=== PATIENT | male | born 1980 | race Caucasian/White ===

== ENCOUNTER → 2023-12-24 08:50 | Outpatient (REF) | payer OTHER, SELFPAY | LOC: RCS 08:50 | PROVIDERS: ATTENDING PHYSICIAN Pain Medicine Interventional Pain Medicine; FAMILY PHYSICIAN Family Medicine | DX: Z01.818 Encounter for other preprocedural examination (principal) | CPT/HCPCS: 93005 ==

== ENCOUNTER → 2024-09-19 12:03 | Outpatient (REF) | payer OTHER, SELFPAY | LOC: MRI 12:03 | PROVIDERS: ATTENDING PHYSICIAN Student in an Organized Health Care Education/Training Program; FAMILY PHYSICIAN Family Medicine | DX: M79.672 Pain in left foot (principal); M25.572 Pain in left ankle and joints of left foot | CPT/HCPCS: 73718; 73721 ==

== ENCOUNTER 2024-10-01 20:48 | Emergency (ER) | payer OTHER, SELFPAY ==
[2024-10-01 20:59] VITALS: BP 150/91
[2024-10-01 22:36] VITALS: BMI 41.4
--- NOTE | 2024-10-01 22:57 | ED.GENMED ---
History of Present Illness
General
Chief Complaint: Chest Pain
Source: patient, records and spouse
Exam Limitations: none
Time Seen by Provider: 10/01/24 22:31
Nursing documentation reviewed up to this point in time: agreed with
History of Present Illness
History of Present Illness:
Patient is a 44-year-old male who presents to the emergency department complaining of sharp pain in his chest for the past week. Patient states the pain was getting sharper and more in the lower posterior portion of his rib cage. Patient has been
coughing. Cough is essentially nonproductive but congested. Today the patient fell his left upper extremity just did not feel right. Patient denies fever or chills. Patient denies nasal congestion, sore throat. Patient denies shortness of
breath but states it does hurt to breathe. Patient has noted increased fatigue and increased urination. Patient has had increasing joint pain and was placed on prednisone which has helped in the past but now just has fatigue. Patient denies any
risk factors for PE or DVT. Patient does have a history of stents. Patient has a history of diabetes, hypertension and elevated cholesterol. 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 Patient has
something similar to this in the past that has been related to bronchitis.
Past History
Past History
ED Past Medical History: CAD (stent 2011), Cancer (Skin), HTN, Hypercholesterolemia, NIDDM, Psychiatric (Anxiety, depression, panic disorder) and Other (History of anxiety, panic disorder); Negative IDDM or NH
ED Past Surgical History: Cardiac (Cardiac stent August 2012), Orthopedic, Tonsilectomy and Other (Ganglion cyst removed in 2011)
Social History
Tobacco: Non-smoker
Alcohol: None
Drug: None
Personal:
Living: with family
Employment: Employed
Family History
Family History: Early CAD (uncle, father and grandfather with early cad)
Review of Systems
Review of Systems
All Other Systems: ROS reviewed and negative except as documented in HPI and ROS
Constitutional: Reports fatigue; Denies fever or chills
EENT: Reports no symptoms
Respiratory: Reports cough and trouble breathing
Cardiac: Reports chest pain; Denies diaphoresis, palpitations or syncope
ABD/GI: Reports no symptoms
: Reports frequency and urgency; Denies dysuria, flank pain or bleeding
Musculoskeletal: Reports no symptoms; Denies back pain
Skin: Reports no symptoms
Neurological: Reports no symptoms
Hematologic/Lymphatic: Reports no symptoms
Phy Exam
Physical Exam
Physical Exam:
Physical Exam
General: mild distress, alert and appropriate, well nourished, well hydrated
HENT: Normocephalic, supple with no lymphadenopathy, no thyromegaly
Eyes: Clear sclera, conjuctiva without injection
Heart: Regular rhythm and rate. No S3, S4. No murmur. No NVD, bruit
Lungs: No respiratory distress, no stridor, lung sounds clear and equal bilaterally, chest wall symmetrical and mildly reproducible tenderness
Abdomen: Soft, nontender, no organomegaly, no CVA tenderness, BS good
Neuro: Alert and oriented x 3, CN II - XII intact, no motor focality, no cerebellar dysfunction
Skin: no rash
Psychiatric: well kept. interactive and cooperative
Extremities: No edema, cyanosis, tenderness
Scores
Heart Failure Risk
Heart Failure Risk Score: Not Applicable
Heart Score for Chest Pain Patients
STEMI patient?: Not applicable
Withdrawal Assessment of Alcohol
Withdrawal Assessment Completed?: Not applicable
Course
Orders/Labs/Results
Orders:
Orders
10/01/24 20:48
EKG [Electrocardiogram (*1)] Urgent
Reason for Study: Chest Pain
10/01/24 20:49
EKG- Treatment ONCE
10/01/24 21:03
CR Chest - 2 Views Urgent
Comment:
Reason For Exam: SOB
10/01/24 21:06
Complete Blood Count/With Diff Urgent
Comprehensive Metabolic Panel Urgent
NT-proBNP Urgent
Troponin I Urgent
10/01/24 22:44
Electrocardiogram (*1) Urgent
Reason for Study: Chest Pain
Ipratropium/Albuterol Sulfate [Duoneb] 3 ml INH R NOW STA
Ketorolac [Toradol] 15 mg IV NOW STA
10/01/24 22:45
EKG- Treatment ONCE
10/02/24 00:02
0.9% Sodium Chloride 500 ml [Nss] 500 ml IV BOLUS
10/02/24 02:19
Ipratropium/Albuterol Sulfate [Duoneb] 3 ml INH R NOW STA
Abnormal Lab Results
10/01/24
21:06
WBC 11.3 H 10^3/uL
(4.8-10.8)
Absolute Neuts (auto) 7.3 H 10^3/uL
(1.4-6.5)
Absolute Monos (auto) 0.9 H 10^3/uL
(0.1-0.6)
BUN 22 H mg/dl
(9-20)
Glucose 268 H mg/dl
(70-99)
ALT 53 H U/L
(0-50)
10/01/24 21:06
10/01/24 21:06
Vital Signs
Initial and Last Documented VS:
Initial Vital Signs
Temp Pulse Resp BP Pulse Ox
98.2 F 80 20 150/91 97
10/01/24 20:59 10/01/24 20:59 10/01/24 20:59 10/01/24 20:59 10/01/24 20:59
Last Documented Vital Signs
Temp Pulse Resp BP Pulse Ox
98.2 F 76 21 131/71 97
10/01/24 20:59 10/02/24 02:00 10/02/24 02:00 10/02/24 02:00 10/02/24 02:00
*Radiology
Radiology exam reviewed: preliminary read by ED provider (Chest x-ray unremarkable)
*Pulse Oximetry
Patient hypoxic: no
*EKG
Interpreted by ED Provider?: Yes
EKG Intrepretation Date: 10/01/24
EKG Intrepretation Time: 23:11
Interpretation: abnormal
Comparison EKG: no changes
Heart Rate: 80
Rate: normal
Rhythm: sinus
[place]: left axis deviation
Interval: normal interval
QRS Pattern: normal QRS
Ischemia: no ischemia
*Telephone Mechanic Interpretation
Rate: normal
Interpretation: normal
Rhythm: sinus
*Critical Care Note
Total Time (30-74mins, 75-104mins- exclusive of procedures): Not Applicable
Update Note
Update Note:
Patient's cardiac workup is unremarkable. The monitor did say 1 4150 but when looking back on it was still normal sinus rhythm in the 70s. Patient seemed to did feel better with the nebulizer. Believe this is more respiratory than cardiac.
Patient is on a tapering dose of prednisone. Will add a nebulizer and. Patient be discharged.
ED Attending Note
-
Portions of this chart may have been created with voice recognition software.� Occasional wrong word or��sound alike� substitutions may have occurred due to the inherent limitations of voice recognition software.
Discharge Plan
Departure
Patient Disposition: Home (Routine Discharge)
Date of Disposition: 10/02/24
Time of Disposition: 02:23
Patient with high blood pressure during this ER visit?: Yes
Condition: Fair
Covid-19: Not Applicable
Discharge Problem:
Acute bronchitis, Chest pain
Instructions: Acute bronchitis in adults, Costochondritis (DC), How to Use a Nebulizer ED, BLOOD PRESSURE
Prescriptions:
New
ipratropium-albuterol 0.5 mg-3 mg(2.5 mg base)/3 mL solution for nebulization
3 ml inhalation Q6H PRN (Reason: shortness of breath or wheezing) Qty: 180 0RF
No Action
atorvastatin 20 MG tablet
20 mg PO HS
aspirin 81 MG tablet,chewable
81 mg PO DAILY
clonazepam 1 MG tablet
1 mg PO DAILYPRN PRN (Reason: anxiety)
tizanidine 4 MG tablet
4 mg PO TIDPRN PRN (Reason: Back Spasms)
Trulicity 0.75 MG/0.5 ML pen injector
0.75 mg SQ SA
acetaminophen 325 MG tablet
650 mg PO Q4HPRN PRN (Reason: mild pain) Qty: 1 0RF
acetaminophen-codeine 325-30 mg Tablet
1 tab PO Q6HPRN PRN (Reason: pain)
hydrocodone-acetaminophen 10-325 mg Tablet
1 tab PO Q8H PRN (Reason: PAIN)
oxycodone-acetaminophen 10-325 mg Tablet
1 tab PO Q6H PRN (Reason: PAIN)
nitroglycerin 0.4 mg Tablet, Sublingual
0.4 mg SUBLINGUAL Q5-15M PRN (Reason: CHEST PAIN)
metoprolol succinate [Toprol XL] 50 mg tablet extended release 24 hr
50 mg PO DAILY Qty: 90 5RF
Referrals:
Agustin Martin MD [Family Provider] - Follow up in 5-7 days
Activity Restrictions/Additional Instructions:
Continue present medications and therapy. Make sure to check your sugars and follow-up with your physician. Any issues please return.
Interventions
Interventions:
*General Assessment Last Done: 10/01/24 20:59
ED- Fall Risk Assessment Last Done: 10/01/24 22:36
*ED COVID-19 Vaccine History Last Done: 10/01/24 22:36
ED- Cardiac Assessment Last Done: 10/01/24 22:36
Discharge Date and Time
Print Language: YAKUT
[2024-10-01] MEDS: DUONEB 3 ML INH (23:35)
[2024-10-01] MEDS: TORADOL 15 MG IV (23:35)
[2024-10-01 23:42] VITALS: BP 135/75
[2024-10-01 23:42] LABS: % Basophils 0.3 % (0-2); % Eosinophils 0.4 % (0-6); % Immature Granulocytes 0.3 % (0-0.5); % Lymphocytes 26.9 % (20.5-51.1); % Monocytes 8.2 % (1.7-9.3); % Neutrophils 63.9 % (42.2-75.2); Absolute Lymphocytes 3.1 10^3/uL (1.2-3.4); Absolute Monocytes 0.9 10^3/uL (0.1-0.6); Absolute Neutrophils 7.3 10^3/uL (1.4-6.5); Hematocrit 42.9 % (39.0-52.0); Hemoglobin 15.1 g/dL (13.0-18.0); Mean Corp Hgb Conc. 35.2 g/dL (33.0-37.0); Mean Corpuscular Volume 88.1 fL (80.0-94.0); Mean Platelet Volume 9.6 fL (7.4-10.4); Nucleated Red Blood Cells % 0 % (-); Platelet Count 241 10^3/uL (130-400); Red Blood Cell Count 4.87 10^6/uL (4.70-6.10); Red Cell Dist. Width 11.9 % (11.5-14.5); White Blood Cell Count 11.3 10^3/uL (4.8-10.8)
[2024-10-01 23:54] LABS: ALT (SGPT) 53 U/L (0-50); AST (SGOT) 30 U/L (17-59); Albumin 4.3 g/dl (3.5-5.0); Alkaline Phosphatase 77 U/L (38-126); Blood Urea Nitrogen 22 mg/dl (9-20); Calcium 9.5 mg/dl (8.4-10.2); Carbon Dioxide 25 mmol/L (22-30); Chloride 98 mmol/L (98-107); Estimated Creatinine Clearance > 125 ml/min; Glucose 268 mg/dl (70-99); Potassium 4.1 mmol/L (3.5-5.1); Sodium 135 mmol/L (135-145); Total Bilirubin 0.6 mg/dl (0.2-1.3); Total Protein 6.7 g/dl (6.3-8.2); eGFR > 60.00
[2024-10-02] VITALS: BP 127/70
[2024-10-02 00:05] LABS: Troponin I < 0.012 ng/ml
[2024-10-02] MEDS: NSS 500 IV (00:35)
[2024-10-02 01:00] VITALS: BP 128/65
[2024-10-02 02:00] VITALS: BP 131/71
[2024-10-02] MEDS: DUONEB 3 ML INH (02:31)
[2024-10-02 03:00] VITALS: BP 108/62
== END 2024-10-02 03:23 | disposition home or self-care (01) ==
LOC: EMR 20:48
PROVIDERS: Emergency Medicine; EMERGENCY PHYSICIAN Emergency Medicine; FAMILY PHYSICIAN Family Medicine
DX: J20.9 Acute bronchitis, unspecified (principal); R07.89 Other chest pain; I25.10 Atherosclerotic heart disease of native coronary artery without angina pectoris; I10 Essential (primary) hypertension; E78.00 Pure hypercholesterolemia, unspecified; E11.9 Type 2 diabetes mellitus without complications; Z85.828 Personal history of other malignant neoplasm of skin; Z95.5 Presence of coronary angioplasty implant and graft
CPT/HCPCS: 99285; 94640; 96374; 96361; 71046; 80053; 83880; 84484; 85025; 93005

== ENCOUNTER 2025-01-03 09:22 | Day surgery (SDC) | payer OTHER, SELFPAY ==
[2025-01-03] VITALS (17 sets, daily range): BP systolic 100–138; BP diastolic 57–80
[2025-01-03 10:10] LABS: Glucose - Point of Care 173 mg/dl (70-99)
[2025-01-03] MEDS: NSS 375 ML IV (10:32)
[2025-01-03 12:37] LABS: ACT-LR - POC 377 Seconds (116-155)
--- NOTE | 2025-01-03 12:55 | ITS.CL.CATH ---
Service Tech - Catheterization
Cardiac Catheterization
Procedure Report:
CARDIAC CATHETERIZATION REPORT
Date of Procedure: 01/03/2025
Referring: Naveen Malik M.D.
INDICATION: Known coronary artery disease, resting chest discomfort.
PROCEDURE:
1. Left heart catheterization.
2. Coronary angiography.
3. Successful IFR of the mid LAD.
4. Successful FFR of the mid LAD.
A total of 44 minutes of procedural/moderate sedation was utilized. An independent medical radiation dosimetrist was present to assist with and help manage the patient's level of consciousness and physiologic status.
ACCESS:
1. 6 Swedish right common femoral artery using a modified Seldinger technique with a micropuncture kit under ultrasound guidance. Ultrasound image obtained.
CATHETERS:
1. 5 Swedish JR4.
2. 5 Swedish JL 4.
3. 6 Swedish EBU 3.75 guiding catheter.
HEMODYNAMIC DATA
Weight (kg): 124.0
AO (s/d/x, mmHg): 138/84/107
LV (s/x mmHg): 138/18
LEFT VENTRICULOGRAPHY: Not performed.
CORONARY ANGIOGRAPHY
Dominance: Right.
Left Main: Normal size, bifurcating vessel. There is no coronary artery disease.
LAD: Normal size vessel giving rise to 2 significant diagonals. There is a 40% lesion in the mid LAD spanning the distance between D1 and D2. The distal LAD decreases in size immediately after the origin of D2.
Ramus: Congenitally absent.
Circumflex: Small size, nondominant vessel that is essentially a single obtuse marginal. There are minor luminal irregularities.
RCA: Enormous, dominant vessel with a large posterolateral branch. A patent stent is visible in the proximal RPDA with no evidence of in-stent restenosis. There are minor luminal irregularities in the PLB.
INTERVENTION(S)
1. Successful IFR of the 40% mid LAD lesion demonstrating borderline disease (IFR = 0.91).
2. Successful FFR of the borderline 40% mid LAD lesion, demonstrating nonocclusive disease (FFR = 0.87).
Narrative:
The decision was made to perform physiologic testing. The diagnostic catheter was removed over a wire and exchanged for a(n) 6 Swedish EBU 3.75 guiding catheter. The guiding catheter was advanced into the ascending aorta and seated in the left main
coronary artery. Additional heparin was given to obtain an ACT greater than 250 seconds. An iFR wire was zeroed outside of the body, then inserted into the guiding sheath. The wire was advanced and the transducer was normalized just outside of the
guiding catheter tip. The wire was advanced into the distal LAD. Three iFR measurements were taken. The lesion was determined to be borderline occlusive (0.91).
In light of the borderline IFR finding, the decision was made to perform provocative testing. Maintaining of the pressure wire position, and infusion of adenosine was started and maintained for 2 minutes. After achieving maximum hyperemia, PD PA
was remeasured and confirmed nonocclusive disease (FFR = 0.87).
The wire was withdrawn and the catheter was removed over a standard J-wire.
Closure Device: 6 Swedish Angio-Seal.
Radiation (mGy): 885.87
DAP (cm2.Gy): 66.7145
Fluoroscopy time (minutes): 6.2
CONCLUSIONS
1. Right dominant circulation with a patent stent in the proximal RPDA with no evidence of in-stent restenosis, minor luminal irregularities in the right posterolateral branch and a nonocclusive 40% lesion in the mid LAD between D1 and D2 (IFR =
0.91, FFR = 0.87).
2. Mild to moderately elevated filling pressures (LVEDP = 18 mmHg at 124.0 kg).
3. Notable EKG changes with injection of the coronary arteries, concerning for endothelial dysfunction.
RECOMMENDATIONS:
1. Expectant management after cardiac catheterization via right common femoral approach.
2. Limited weight bearing for one week.
3. Continue aggressive secondary prevention with high-dose, high potency statin. Goal LDL <55.
4. OMT/GDMT as hemodynamics will tolerate. Start amlodipine 5 mg daily to assist with possible endothelial dysfunction.
5. Start furosemide 40 mg p.o. daily given elevated filling pressures. BMP in 1 week to monitor renal function and potassium level.
6. Stable for outpatient follow-up.
Copy to: aNveen Malik M.D., Agustin Martin M.D.
Aiden Lozada DO, FACC, FACP
[2025-01-03] MEDS: NORVASC 5 MG PO (13:30)
== END 2025-01-03 16:40 | disposition home or self-care (01) ==
LOC: CATH 09:22
PROVIDERS: ATTENDING PHYSICIAN Internal Medicine Cardiovascular Disease; FAMILY PHYSICIAN Family Medicine; OTHER PHYSICIAN Internal Medicine Cardiovascular Disease
DX: I25.110 Atherosclerotic heart disease of native coronary artery with unstable angina pectoris (principal); R94.31 Abnormal electrocardiogram [ECG] [EKG]; Z95.5 Presence of coronary angioplasty implant and graft; I10 Essential (primary) hypertension; Z79.82 Long term (current) use of aspirin; Z79.899 Other long term (current) drug therapy; Z79.85 Long-term (current) use of injectable non-insulin antidiabetic drugs
CPT/HCPCS: 99152; 99153; 76937; 82962; 85347; 93458; 93571; C1760; C1769; C1894; J0153

== ENCOUNTER 2025-01-08 14:25 | Emergency (ER) | payer OTHER, SELFPAY ==
[2025-01-08 14:47] VITALS: BP 131/87
[2025-01-08 15:31] LABS: % Basophils 0.4 % (0-2); % Immature Granulocytes 0.6 % (0-0.5); % Lymphocytes 24.6 % (20.5-51.1); % Monocytes 6.7 % (1.7-9.3); % Neutrophils 65.7 % (42.2-75.2); Absolute Eosinophils 0.2 10^3/uL (0-0.7); Absolute Immature Granulocytes 0.1 10^3/uL (0-0.05); Absolute Lymphocytes 2.1 10^3/uL (1.2-3.4); Absolute Monocytes 0.6 10^3/uL (0.1-0.6); Absolute Neutrophils 5.5 10^3/uL (1.4-6.5); Hemoglobin 16.2 g/dL (13.0-18.0); Mean Corpuscular Hgb 31.4 pg (27.0-31.0); Mean Corpuscular Volume 87.2 fL (80.0-94.0); Mean Platelet Volume 9.7 fL (7.4-10.4); Nucleated Red Blood Cells % 0 % (-); Platelet Count 230 10^3/uL (130-400); Red Blood Cell Count 5.16 10^6/uL (4.70-6.10); Red Cell Dist. Width 12.1 % (11.5-14.5); White Blood Cell Count 8.4 10^3/uL (4.8-10.8)
[2025-01-08 15:44] LABS: ALT (SGPT) 48 U/L (0-50); AST (SGOT) 29 U/L (17-59); Albumin 4.8 g/dl (3.5-5.0); Alkaline Phosphatase 94 U/L (38-126); Blood Urea Nitrogen 16 mg/dl (9-20); Calcium 9.4 mg/dl (8.4-10.2); Carbon Dioxide 22 mmol/L (22-30); Chloride 102 mmol/L (98-107); Glucose 315 mg/dl (70-99); Potassium 3.9 mmol/L (3.5-5.1); Sodium 137 mmol/L (135-145); Total Bilirubin 0.9 mg/dl (0.2-1.3); Total Protein 7.3 g/dl (6.3-8.2); eGFR > 60.00
[2025-01-08 15:48] LABS: APTT 25.8 Sec (23.4-35.0); PT 13.5 Sec (11.4-14.6)
[2025-01-08 17:00] VITALS: BP 137/87
--- NOTE | 2025-01-08 17:51 | ED.GENMED ---
History of Present Illness
General
Chief Complaint: Post Operative Problem(s)
Time Seen by Provider: 01/08/25 16:53
History of Present Illness
History of Present Illness:
44-year-old male with history of insulin-dependent diabetes and coronary artery disease presents to the emergency department for evaluation of right groin pain that began the day after undergoing a cardiac catheterization 5 days ago. No PCI was
performed at that time. Patient states his pain is worsened since that time, increases when walking. No bruising or mass at the site. He is not currently on any antiplatelets other than baby aspirin
Past History
Past History
ED Past Medical History: CAD (stent 2011), Cancer (Skin), HTN, Hypercholesterolemia, NIDDM, Psychiatric (Anxiety, depression, panic disorder) and Other (History of anxiety, panic disorder); Negative IDDM or [place]
ED Past Surgical History: Cardiac (Cardiac stent August 2012), Orthopedic, Tonsilectomy and Other (Ganglion cyst removed in 2011)
Social History
Tobacco: Non-smoker
Alcohol: None
Drug: None
Personal:
Living: with family
Employment: Employed
Family History
Family History: Early CAD (uncle, father and grandfather with early cad)
Review of Systems
Review of Systems
Allergies reviewed?: Yes
All Other Systems: ROS reviewed and negative except as documented in HPI and ROS
Phy Exam
Physical Exam
Physical Exam:
GEN: Well appearing, NAD, WDWN
HEENT: Oral mucosa moist, no scleral icterus
Cardiac: Regular rate
Lung: No respiratory distress, no tachypnea
MSK: No gross deformity or injuries. Exquisitely tender to the right groin, no ecchymosis or pulsatile hematoma, no erythema or warmth
Skin: Good color, no pallor or jaundice, no rashes
Neuro: AO x3, moves all extremities freely
Psych: Calm, cooperative
Course
Orders/Labs/Results
Orders:
Orders
01/08/25 14:54
US Groin (vascular exam) RT Urgent
Reason For Exam: recent surgery/cath, pseudoaneurysm
01/08/25 14:55
Type+Screen Urgent
01/08/25 15:08
Complete Blood Count/With Diff Urgent
Comprehensive Metabolic Panel Urgent
PT/INR [Prothrombin Time] Urgent
PTT Urgent
01/08/25 17:37
Oxycodone [Roxicodone] 5 mg PO NOW STA
Abnormal Lab Results
01/08/25
15:08
MCH 31.4 H pg
(27.0-31.0)
Abs Immat Gran (auto) 0.1 H 10^3/uL
(0-0.05)
Immature Gran % 0.6 H %
(0-0.5)
Creatinine 0.6 L mg/dL
(0.7-1.3)
Glucose 315 H mg/dl
(70-99)
01/08/25 15:08
01/08/25 15:08
Vital Signs
Initial and Last Documented VS:
Initial Vital Signs
Temp Pulse Resp BP Pulse Ox
98.2 F 82 20 131/87 94
01/08/25 14:47 01/08/25 14:47 01/08/25 14:47 01/08/25 14:47 01/08/25 14:47
Last Documented Vital Signs
Temp Pulse Resp BP Pulse Ox
98.1 F 75 18 137/87 94
01/08/25 17:54 01/08/25 17:54 01/08/25 17:54 01/08/25 17:54 01/08/25 14:47
MDM/Problems Addressed
MDM/Problems Addressed:
Pulmonary imaging findings per tap and die maker technician suspicious for local hematoma but no pseudoaneurysm. This fits with the patient's report of near instantaneous pain immediately after the procedure. No fever or leukocytosis to suggest this fluid
collection is an abscess. Discussed supportive care and pain control
*Critical Care Note
Total Time (30-74mins, 75-104mins- exclusive of procedures): Not Applicable
ED Attending Note
-
Portions of this chart may have been created with voice recognition software.� Occasional wrong word or��sound alike� substitutions may have occurred due to the inherent limitations of voice recognition software.
Discharge Plan
Departure
Patient Disposition: Home (Routine Discharge)
Date of Disposition: 01/08/25
Time of Disposition: 17:51
Patient with high blood pressure during this ER visit?: No
Discharge Problem:
Hematoma, postoperative
Instructions: Hematoma
Prescriptions:
New
oxycodone 5 mg tablet
5 mg PO Q8H PRN (Reason: Pain) Qty: 10 0RF
No Action
atorvastatin 20 MG tablet
80 mg PO HS
aspirin 81 MG tablet,chewable
81 mg PO DAILY
clonazepam 1 MG tablet
1 mg PO DAILYPRN PRN (Reason: anxiety)
tizanidine 4 MG tablet
4 mg PO TIDPRN PRN (Reason: Back Spasms)
Trulicity 0.75 MG/0.5 ML pen injector
0.75 mg SQ ADAM
acetaminophen 325 MG tablet
650 mg PO Q4HPRN PRN (Reason: mild pain) Qty: 1 0RF
acetaminophen-codeine 325-30 mg Tablet
1 tab PO Q6HPRN PRN (Reason: pain)
hydrocodone-acetaminophen 10-325 mg Tablet
1 tab PO Q8H PRN (Reason: PAIN)
oxycodone-acetaminophen 10-325 mg Tablet
1 tab PO Q6H PRN (Reason: PAIN)
nitroglycerin 0.4 mg Tablet, Sublingual
0.4 mg SUBLINGUAL Q5-15M PRN (Reason: CHEST PAIN)
metoprolol succinate [Toprol XL] 50 mg tablet extended release 24 hr
50 mg PO DAILY Qty: 90 5RF
ipratropium-albuterol 0.5 mg-3 mg(2.5 mg base)/3 mL solution for nebulization
3 ml inhalation Q6H PRN (Reason: shortness of breath or wheezing) Qty: 180 0RF
amlodipine 5 mg tablet
5 mg PO DAILY Qty: 90 5RF
furosemide [Lasix] 40 mg tablet
40 mg PO DAILY Qty: 90 5RF
Referrals:
Agustin Martin MD [Family Provider] -
Interventions
Interventions:
*Risk Screen - Suicide Last Done: 01/08/25 14:47
*General Assessment Last Done: 01/08/25 14:47
*Neglect/Abuse Screening Last Done: 01/08/25 17:53
*ED- Fall Risk Assessment Last Done: 01/08/25 17:53
*ED COVID-19 Vaccine History Last Done: 01/08/25 17:53
*Nursing Disposition Last Done: 01/08/25 17:54
ED-Skin Assessment Last Done: 01/08/25 17:17
Discharge Date and Time
Discharge Date/Time: 01/08/25 17:57
Print Language: CHINESE
[2025-01-08] MEDS: ROXICODONE 5 MG PO (17:52)
[2025-01-08 17:54] VITALS: BP 137/87
== END 2025-01-08 17:57 | disposition home or self-care (01) ==
LOC: EMR 14:25
PROVIDERS: EMERGENCY PHYSICIAN Emergency Medicine; FAMILY PHYSICIAN Family Medicine
DX: L76.32 Postprocedural hematoma of skin and subcutaneous tissue following other procedure (principal); R10.31 Right lower quadrant pain; I25.10 Atherosclerotic heart disease of native coronary artery without angina pectoris; I10 Essential (primary) hypertension; F41.8 Other specified anxiety disorders; E11.9 Type 2 diabetes mellitus without complications; E78.00 Pure hypercholesterolemia, unspecified; Z82.49 Family history of ischemic heart disease and other diseases of the circulatory system; Z85.828 Personal history of other malignant neoplasm of skin; Z95.5 Presence of coronary angioplasty implant and graft
CPT/HCPCS: 99284; 80053; 85025; 85610; 85730; 93926

== ENCOUNTER → 2025-03-14 09:16 | Outpatient (REF) | payer OTHER, SELFPAY | LOC: RCS 09:16 | PROVIDERS: ATTENDING PHYSICIAN Internal Medicine Cardiovascular Disease; FAMILY PHYSICIAN Family Medicine | DX: I25.10 Atherosclerotic heart disease of native coronary artery without angina pectoris (principal); I47.10 Supraventricular tachycardia, unspecified; I10 Essential (primary) hypertension; E78.2 Mixed hyperlipidemia; Z68.41 Body mass index [BMI] 40.0-44.9, adult; E66.813 Obesity, class 3 | CPT/HCPCS: 93306; Q9950 ==